=== PATIENT | male | born 1985 | race Caucasian/White ===

== ENCOUNTER → 2016-12-10 | Outpatient (CLI) | payer BC ==
[2016-12-10 08:54] LABS: CHLORIDE,CL 106 mmol/L (98-110); SODIUM,NA 140 mmol/L (136-146)
== END ==
LOC: MW.CHIM 07:55
PROVIDERS: ATTEND Internal Medicine
DX: R53.83 Other fatigue (principal)
CPT/HCPCS: 36415; 80053; 80061; 84443; 85025

== ENCOUNTER 2019-02-08 14:02 | Emergency (ER) | payer OTHER, BC ==
[2019-02-08] MEDS ORDERED: Lidocaine 1% with EPINEPHrine 1:100,000 20 ML MDV INJECT ONE (14:17)
[2019-02-08] MEDS ORDERED: Diphtheria,Pertussis(Acell),Tetanus Vaccine 0.5 ML Syringe IM ONE (14:27)
[2019-02-08] MEDS ORDERED: Bacitracin Oint 1 GM U/D Packet TOP ONE (15:08)
--- NOTE | 2019-02-08 15:19 | EDM.PDOC ---
ED HPI GENERAL MEDICAL PROBLEM - General Chief Complaint: Laceration Stated Complaint: CUT ON HEAD Time Seen by Provider: 02/08/19 14:13 Source of Information: Reports: Patient History Limitations: Reports: No Limitations - History of Present Illness INITIAL COMMENTS - FREE TEXT/NARRATIVE: Presents reporting that he was pounding on some metal when a piece came up and hit him in the forehead resulting in a laceration. No loss of consciousness, no other injuries. laceration to forehead Pain Score (Numeric/FACES): 6 - Related Data Allergies Allergy/AdvReac Type Severity Reaction Status Date / Time No Known Allergies Allergy Verified 02/08/19 14:13 Home Meds: Home Meds . [No Known Home Meds] 02/08/19 [History] Past Medical History - Past Health History Medical/Surgical History: Denies Medical/Surgical History Social & Family History - Family History Family Medical History: Noncontributory - Tobacco Use Smoking Status *Q: Never Smoker - Caffeine Use Caffeine Use: Reports: Coffee, Energy Drinks - Recreational Drug Use Recreational Drug Use: No ED ROS GENERAL - Review of Systems Review Of Systems: ROS reveals no pertinent complaints other than HPI. ED EXAM, SKIN/RASH Exam: See Below Exam Limited By: No Limitations General Appearance: Alert, No Apparent Distress Ears: Normal External Exam Nose: Normal Inspection Throat/Mouth: Normal Inspection Head: Other (Laceration above left brow) Neck: Normal Inspection Respiratory/Chest: No Respiratory Distress, Lungs Clear, Normal Breath Sounds Cardiovascular: Normal Peripheral Pulses, Regular Rate, Rhythm, No Murmur GI/Abdominal: Soft Back Exam: Normal Inspection Extremities: Normal Inspection Neurological: Alert, Oriented, CN II-XII Intact, Normal Cognition, No Motor/ Sensory Deficits Psychiatric: Normal Affect, Normal Mood Skin: Warm, Dry, Intact, Normal Color, No Rash ED SKIN PROCEDURES - Laceration/Wound Repair Face Appearance: Subcutaneous Distal NVT: Neuro & Vascular Intact Local Anesthetic Volume: 5cc Skin Prep: Chlorhexidine (Hibiciens) Saline Irrigation (cc's): 100 Exploration/Debridement/Repair: Wound Explored, In a Bloodless Field, Explored to Base Closed with: Sutures, Steri-Strips Suture Size: 4-0 # of Sutures: 1 (Continuous subcuticular) Suture Size: 4-0 Repaired with: Other (absorbable) Course - Vital Signs Last Recorded V/S: Last Vital Signs Temp 36.7 C 02/08/19 14:11 Pulse 103 H 02/08/19 14:11 Resp 16 02/08/19 14:11 BP 165/88 H 02/08/19 14:11 Pulse Ox 97 02/08/19 14:11 - Orders/Labs/Meds Orders: Active Orders 24 hr Category Date Time Status Vaccines to be Administered [RC] PER UNIT ROUTINE Care 02/08/19 14:27 Active Meds: Medications Discontinued Medications Generic Name Dose Route Start Last Admin Trade Name Carolin PRN Reason Stop Dose Admin Bacitracin 1 dose 02/08/19 15:08 02/08/19 15:13 Bacitracin Oint 1 Gm TOP 02/08/19 15:09 1 dose ONETIME ONE Administration Diphtheria/Tetanus/Acell Pertussis 0.5 ml 02/08/19 14:27 02/08/19 14:52 Adacel IM 02/08/19 14:28 0.5 ml .ONCE ONE Administration Lidocaine/Epinephrine 20 ml 02/08/19 14:17 02/08/19 14:27 Xylocaine 1% With Epinephrine 1:100,000 INJECT 02/08/19 14:18 20 ml ONETIME ONE Administration Departure - Departure Time of Disposition: 15:17 Disposition: Home, Self-Care 01 Condition: Good Clinical Impression: Laceration - Discharge Information Referrals: PCP,Unknown [Primary Care Provider] - [facility] [Outside] [facility] [Outside] Additional Instructions: 1. Suture removal 7 days. One running suture 2. Steri strips will fall off on their own 3. Watch for signs of infection, redness, swelling, purulent drainage--report promptly 4. Tylenol 1 g every 8 hours as needed for headache - My Orders Last 24 Hours: My Active Orders 02/08/19 14:27 Vaccines to be Administered [RC] PER UNIT ROUTINE - Assessment/Plan Last 24 Hours: My Active Orders 02/08/19 14:27 Vaccines to be Administered [RC] PER UNIT ROUTINE
== END 2019-02-08 15:28 | disposition home or self-care (01) ==
LOC: MW.ED 14:02
DX: S01.81XA Laceration without foreign body of other part of head, initial encounter (principal); Z23 Encounter for immunization; W31.89XA Contact with other specified machinery, initial encounter
CPT/HCPCS: 90471; 90715; 99282

== ENCOUNTER 2019-02-16 10:11 | Emergency (ER) | payer BC, OTHER | END 2019-02-16 11:08 | disposition left against medical advice (07) | LOC: MW.ED 10:11 | DX: Z48.02 Encounter for removal of sutures (principal) ==